=== PATIENT | female | born 1980 | race Caucasian/White ===

== ENCOUNTER → 2016-10-07 | Outpatient (CLI) | payer BC | LOC: COL.RAD 10-06 10:30 | DX: K80.80 Other cholelithiasis without obstruction (principal) ==

== ENCOUNTER → 2021-12-02 | Outpatient (CLI) | payer BC | LOC: MC.RAD 16:57 | DX: Z12.31 Encounter for screening mammogram for malignant neoplasm of breast (principal); N63.22 Unspecified lump in the left breast, upper inner quadrant; N64.89 Other specified disorders of breast ==

== ENCOUNTER → 2021-12-05 | Outpatient (CLI) | payer BC | LOC: MC.RAD 07:00 | DX: N63.22 Unspecified lump in the left breast, upper inner quadrant (principal) ==

== ENCOUNTER → 2021-12-10 | Outpatient (CLI) | payer BC | LOC: MC.RAD 07:00 | DX: N63.22 Unspecified lump in the left breast, upper inner quadrant (principal) ==